=== PATIENT | female | born 1975 | race Caucasian/White ===

== ENCOUNTER → 2021-03-31 10:46 | Outpatient (CLI) | payer OTHER, SELFPAY ==
[2021-03-31 12:53] LABS: Follicle Stimulating Hormone 40.6 mIU/mL
[2021-04-02 20:55] LABS: HPV APTIMA, High Risk Negative (Negative)
== END ==
PROVIDERS: Referring Provider Nurse Practitioner Women's Health; Visit Provider Nurse Practitioner Women's Health
DX: Z12.4 Encounter for screening for malignant neoplasm of cervix (principal); Z13.29 Encounter for screening for other suspected endocrine disorder; N93.9 Abnormal uterine and vaginal bleeding, unspecified
CPT/HCPCS: 36415; 83001; 84443; 87624; 88175; G0145